=== PATIENT | male | born 1970 | race African-American/Black ===

== ENCOUNTER 2020-02-20 09:35 | Emergency (ER) | payer OTHER ==
[~2020-02-20] VITALS: Ht 182.9 cm; Wt 86.2 kg
[2020-02-20 09:38] VITALS: BP 125/75
--- NOTE | 2020-02-20 09:48 | NUR ---
PT AMBULATED TO ER BED 07
--- NOTE | 2020-02-20 09:55 | NUR ---
49 Y/O MALE FROM HOME C/O BILATERAL FOOT PAIN WITH OPEN SORE TO TOP OF FOOT X 4 DAYS. PT STATES HE HAD BEEN RUNNING MORE FREQUENTLY PRIOR TO FOOT PAIN. PT STATES INCREASED PAIN WITH AMBULATION. +PULSES, CMS INTACT. 10/10 SHARP PAIN AT THIS TIME. STATES HE HAS NOT TAKEN ANY MEDICATION FOR PAIN. STATES INCREASE IN ASTHMA EXACERBATION THE LAST FEW DAYS, STATES HE "FEELS DIFFERENT" WITH SLIGHT SOB. RR EVEN AND UNLABORED, CALM AND PLEASANT. VSS MEDHX: ASTHMA ALLERGIES: NKA
--- NOTE | 2020-02-20 09:55 | NUR ---
PT MOVED TO BED 09
--- NOTE | 2020-02-20 10:07 | NUR ---
DR MARTINO AT BEDSIDE EXAMINING PT
[2020-02-20] MEDS ORDERED: BUPIVACAINE-MPF 0.5% 30 ML VIAL INJ ONE (10:15)
--- NOTE | 2020-02-20 10:17 | NUR ---
X-RAY AT BEDSIDE
--- NOTE | 2020-02-20 10:20 | NUR ---
LAB AT BEDSIDE
[2020-02-20 10:29] LABS: BASOPHILS % (AUTO) 0.8 % (0.0-2.0); EOSINOPHILS # (AUTO) 0.4 K/uL (0-0.4); EOSINOPHILS % (AUTO) 6.7 % (0.0-4.0); HEMATOCRIT 40.5 % (36-52); HEMOGLOBIN 13.3 g/dL (12.0-18.0); LYMPHOCYTES # (AUTO) 1.3 K/uL (2.0-11.5); LYMPHOCYTES % (AUTO) 21.3 % (20.5-51.1); MEAN CORPUSCULAR HEMOGLOBIN 31 pg (27-31); MEAN CORPUSCULAR HGB CONC 33 g/dL (33-37); MEAN CORPUSCULAR VOLUME 93.8 fL (80-94); MONOCYTES # (AUTO) 0.6 K/uL (0.8-1.0); NEUTROPHILS # (AUTO) 3.7 K/uL (1.8-7.7); NEUTROPHILS % (AUTO) 61.2 % (42.2-75.2); PLATELET COUNT (AUTO) 210 K/uL (140-450); RED BLOOD CELL COUNT(AUTO) 4.32 MIL/uL (4.20-6.10); RED CELL DISTRIBUTION WIDTH 14.1 % (11.6-13.7)
--- NOTE | 2020-02-20 10:39 | NUR ---
DR MARTINO AT BEDSIDE FOR PROCEDURE. PT TOLERATED WELL. LT BIG TOE NAIL REMOVED.
[2020-02-20 10:44] LABS: ALBUMIN 3.2 g/dL (3.4-5.0); ANION GAP 11.1 (8-16); CARBON DIOXIDE 27.3 mmol/L (21-32); CREATININE 1.5 mg/dL (0.6-1.3); POTASSIUM 4.4 mmol/L (3.5-5.1); TOTAL BILIRUBIN 0.2 mg/dL (0.0-1.0)
[2020-02-20] MEDS ORDERED: BACITRACIN OINT 500 UNITS/GM PKT TP ONE ×2 (10:47→10:50)
[2020-02-20 10:57] VITALS: BP 125/75
--- NOTE | 2020-02-20 10:57 | NUR ---
Patient discharged with v/s stable. Written and verbal after care instructions given and explained. Patient alert, oriented and verbalized understanding of instructions. Ambulatory with steady gait. All questions addressed prior to discharge. ID band removed. Patient advised to follow up with PMD. Rx of ITRACONAZOLE 100MG AND BACTRIM 800MG given. Patient educated on indication of medication including possible reaction and side effects. Opportunity to ask questions provided and answered.
== END 2020-02-20 10:57 | disposition home or self-care (01) ==
LOC: MED 09:35
DX: B35.1 Tinea unguium (principal); R07.9 Chest pain, unspecified; N17.9 Acute kidney failure, unspecified
CPT/HCPCS: 11730; 36415; 71045; 80053; 85025; 99284; J3490

== ENCOUNTER 2020-05-09 15:55 | Emergency (ER) | payer MEDICAID, OTHER ==
[~2020-05-09] VITALS: Ht 182.9 cm; Wt 90.7 kg
[2020-05-09 16:00] VITALS: BP 100/64
--- NOTE | 2020-05-09 16:06 | NUR ---
PT WHEELCHAIRED TO ER BED 05
--- NOTE | 2020-05-09 16:17 | NUR ---
49 Y/O MALE C/O BILAT FOOT FUNGAL INFECTION/BLEEDING THAT HAS BEEN GOING ON FOR A FEW WEEKS. UPON ASSESSMENT, MULTIPLE OPENED BLISTERS NOTED ON BOTTOM OF FEET, OOZING PINK DISCHARGE. PATIENT DENIES ANY PAIN AT THIS TIME BUT STATES "I CANT WALK ON MY FEET". PT ALSO C/O ONE EPISODE OF SYNCOPE THIS MORNING, PT STATES HE DID COCAINE AND HAD A TALL CAN THIS MORNING BEFORE SYNCOPE EPISODE. DENIES ANY DIZZINESS/N/V/D. RESP EVEN AND UNLABORED. PMH: ASTHMA
[2020-05-09 16:24] VITALS: BP 100/64
--- NOTE | 2020-05-09 16:25 | NUR ---
Patient discharged with v/s stable. Written and verbal after care instructions given and explained. Patient alert, oriented and verbalized understanding of instructions. Ambulatory with steady gait. All questions addressed prior to discharge. ID band removed. Patient advised to follow up with PMD. Rx of KEFLEX, NYSTATIN given. Patient educated on indication of medication including possible reaction and side effects. Opportunity to ask questions provided and answered.
== END 2020-05-09 16:25 | disposition home or self-care (01) ==
LOC: MED 15:55
DX: S90.415A Abrasion, left lesser toe(s), initial encounter (principal); L03.032 Cellulitis of left toe; B35.3 Tinea pedis; F17.200 Nicotine dependence, unspecified, uncomplicated; J45.909 Unspecified asthma, uncomplicated; Z98.890 Other specified postprocedural states; W22.03XA Walked into furniture, initial encounter; Y93.01 Activity, walking, marching and hiking; Y92.038 Other place in apartment as the place of occurrence of the external cause; Y99.8 Other external cause status
CPT/HCPCS: 99283